=== PATIENT | female | born 1990 | race Caucasian/White ===

== ENCOUNTER 2020-10-04 14:04 | Emergency (ER) | payer OTHER, SELFPAY ==
--- NOTE | ~2020-10-04 | XR_ITS ---
XR foot RT min 3V 10/04/2020 14:32 INDICATION: Right foot pain PROCEDURE: 4 views right foot COMPARISON: No prior studies for comparison. FINDINGS: Fracture, dislocation or subluxation is not identified. Lisfranc joint intact. The soft tis sues appear within normal limits. No foreign bodies are identified. IMPRESSION: 1: NO ACUTE BONE OR JOINT ABNORMALITY IDENTIFIED. Reviewed, dictated and finalized at location B. [employer]EF[employer] COORDINATOR
[2020-10-04 14:14] VITALS: BP 105/66; PULSE 60; RESP 18; TEMP 36.6; O2SAT 99
--- NOTE | 2020-10-04 14:36 | ED.GENADULT ---
HPI - General Adult General Chief complaint: Extremity Injury, Lower Stated complaint: Extremity Injury, Lower Source: patient Mode of arrival: ambulatory Limitations: no limitations History of Present Illness HPI narrative: 30 y/o female. PMH includes: None Reported. Presents to [facility], ambulatory via triage, favoring RT ankle. CC is RT ankle injury immediately [employer]. 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 She describes immediate onset of 'sharp pain'. No loss of sensation. No open wounds. No additional injury has been identified. Related Data Home Medications Medication Instructions Recorded Confirmed No Home Medications 10/04/20 10/04/20 Allergies Allergy/AdvReac Type Severity Reaction Status Date / Time aspirin Allergy Unknown Swelling Verified 10/04/20 14:26 of Lip/Tongue/Throat cyclobenzaprine Allergy Unknown Itching Verified 10/04/20 14:26 Review of Systems Review of Systems: Narrative: CONSTITUTIONAL: Denies fever, chills, sweats. EYES: Denies visual changes, redness, discharge. ENT: Denies rhinorrhea, congestion, sore throat, otalgia. CARDIOVASCULAR: Denies chest pain, palpitations, edema. RESPIRATORY: Denies dyspnea, wheezing, cough GASTROINTESTINAL: Denies abdominal pain, nausea, vomiting, diarrhea. GENITOURINARY: Denies dysuria, hematuria, abnormal discharge SKIN: Denies rash or itching. MUSCULOSKELETAL: RT ankle pain. NEUROLOGIC: Denies numbness, or focal weakness. PSYCHIATRIC: Denies anxiety or depression. [facility] Family History Family History Mother Family history of thyroid disease Father Patient's father is in good health Sibling Patient's sister is in good health Other Cerebrovascular accident Diabetes mellitus Social History Social History Smoking status: Never smoker Alcohol intake: current Comments At the time of my signature I agree with nursing past medical history, surgical, social, and family history. There is no relevant family history pertinent to the presenting complaint. Exam Narrative: Exam Narrative: GENERAL: This is a well-nourished, well-developed patient, in no apparent distress. HEAD: normocephalic, atraumatic. EYES: PERRL. Sclera clear/white. Vision is grossly intact. EARS: External ears normal, auditory canals clear and without drainage, TMs normal without perforation. Hearing grossly intact. NOSE: External nose normal with no obvious nasal discharge, nares without redness, no rhinorrhea. THROAT: Mucous membranes moist, posterior pharynx clear. NECK: Neck supple, non-tender without lymphadenopathy, masses or thyromegaly. CARDIOVASCULAR: Regular rate and rhythm without murmurs, gallops, or rubs. Pulses intact, 3+ RLE. RESPIRATORY: Clear to auscultation. Breath sounds equal bilaterally. No wheezes, rales, or rhonchi. GASTROINTESTINAL: Abdomen soft, non-tender, nondistended. Bowel sounds are active. No hepato-splenomegaly, or palpable masses. No guarding. SKIN: warm, intact with no suspicious lesions or rash, good texture and turgor. NEURO: awake, alert, and oriented to person, place and time. There were no obvious focal neurologic abnormalities. Sensation RLE is preserved. EXTREMITIES: The RT ankle is swollen and tender over the lateral aspect but the skin is intact and there is no ligamentous instability. There is no deformity. The foot and toes are warm and well-perfused. Distal pulses and sensation to pain and light touch is intact. Remainder of musculoskeletal exam is unremarkable. Course Course Emergency Course: Radiology imaging has been reviewed with client. Dx: Ankle Sprain RT. PO POC, AVS, & Care instructions reviewed. She has been provided DADA & Crutches from [facility] today. Timeline of recover 4-6 weeks has been reviewed.
--- NOTE | 2020-10-04 14:45 | PC.NURSE ---
PT DECLINED ICE FOR COMFORT AND WHEELCHAIR TO RADIOLOGY
== END 2020-10-04 14:58 | disposition home or self-care (01) ==
PROVIDERS: Emergency Provider Nurse Practitioner Adult Health; PCP Internal Medicine
DX: S93.401A Sprain of unspecified ligament of right ankle, initial encounter (principal); S96.911A Strain of unspecified muscle and tendon at ankle and foot level, right foot, initial encounter; W51.XXXA Accidental striking against or bumped into by another person, initial encounter; Z86.19 Personal history of other infectious and parasitic diseases
CPT/HCPCS: 73630; 99213; G0463

== ENCOUNTER 2022-08-04 18:08 | Emergency (ER) | payer OTHER, SELFPAY ==
--- NOTE | ~2022-08-04 | XR_ITS ---
EXAM: XR elbow RT min 3V DATE: 08/04/2022 18:47 HISTORY: FELL DOWN STAIRS 08/02/22. POST. SWELLING/PAIN/BRUISIING. . COMPARISON: None available. FINDINGS: Subjectively decreased mineralization. No fracture or dislocation. No lytic or blastic les ion. Joint spaces are maintained. No erosion or periosteal change. Soft tissues within normal limits. IMPRESSION: No acute osseous finding in the right elbow. Reviewed, dictated and finalized at location K.
[2022-08-04 18:14] VITALS: BP 129/73; PULSE 96; RESP 14; TEMP 36.5; O2SAT 100
--- NOTE | 2022-08-04 18:47 | ED.GENADULT ---
HPI - General Adult General Chief complaint: Extremity Injury, Upper Stated complaint: injury to both forearms Time Seen by Provider: 08/04/22 18:38 Source: patient Mode of arrival: ambulatory Limitations: no limitations History of Present Illness HPI narrative: 31-year-old female presented for complaint of bilateral forearm pain after bruising after falling down the stairs 2 days ago. She endorses caring laundry when she slipped on the stairs, she states she caught herself with both elbows. Denies hitting her head or loss of consciousness. Endorses right elbow with the most pain. Denies decreased range of motion to the elbow or swelling. Reports abrasion to elbow and ring and little finger 'feel different.' Denies numbness, tingling, weakness of the upper extremities. Taking Tylenol and ibuprofen for pain. Related Data Home Medications Medication Instructions Recorded Confirmed No Home Medications 10/04/20 08/04/22 Allergies Allergy/AdvReac Type Severity Reaction Status Date / Time aspirin Allergy Unknown Swelling Verified 08/04/22 18:26 of Lip/Tongue/Throat cyclobenzaprine Allergy Unknown Itching Verified 08/04/22 18:26 Review of Systems Review of Systems: CONSTITUTIONAL: Denies body aches, fever, chills EYES: Denies visual changes CARDIOVASCULAR: Denies chest pain, palpitations, or edema. RESPIRATORY: Denies cough or dyspnea. SKIN: Denies rash, itching, or wounds. MUSCULOSKELETAL: Reports right elbow pain, bruising NEUROLOGIC: Denies headache, numbness, tingling, or weakness. All systems reviewed & are unremarkable except as noted in HPI and below PMFSH Family History Family History Mother Family history of thyroid disease Father Patient's father is in good health Sibling Patient's sister is in good health Other Cerebrovascular accident Diabetes mellitus Social History Social History Smoking status: Never smoker Alcohol intake: current Comments At time of signature, I have reviewed and agree with nursing past medical, surgical, social and family history unless otherwise noted. Please see nursing chart for further information. There is no relevant family history pertinent to the presenting complaint Exam Narrative: GENERAL: Well-appearing HEAD: Normocephalic, atraumatic. EYES: PERRLA, conjunctivae clear NECK: Supple. CHEST: Speaks in full sentences. No respiratory distress. HEART: Regular rate and rhythm. Normal and equal peripheral pulses. EXTREMITIES: Right medial epicondylar tenderness with palpation; approx 0.5cm diameter abrasion without drainage; right hand and fingers with normal strength and sensation, normal range of motion. Moderate bruising to bilateral forearms, LFA nontender, full ROM. No obvious deformity; alignment normal, pulse palpable and equal bilaterally, skin warm, dry, pink. Capillary refill less than 3 seconds. SKIN: Warm, dry, no rash. NEURO: Alert and oriented x3. PSYCH: Normal mood and affect Course Course Emergency Course: Patient is aware of diagnosis, understands and agrees to treatment plan. Anticipatory guidance given. Patient agrees to follow-up as directed and is aware of reasons to seek care at the emergency department. Portions of this record may have been created with voice recognition software Level of Care: Express Care Visit Vital Signs Vital signs: Vital Signs Temperature 97.7 F 08/04/22 18:14 Pulse Rate 96 08/04/22 18:14 Respiratory Rate 14 08/04/22 18:14 Blood Pressure 129/73 08/04/22 18:14 Pulse Oximetry 100 08/04/22 18:14 Oxygen Delivery Room Air 08/04/22 18:14 Temperature 97.7 F 08/04/22 18:14 Pulse Rate 96 08/04/22 18:14 Respiratory Rate 14 08/04/22 18:14 Blood Pressure 129/73 08/04/22 18:14 Pulse Oximetry 100 08/04/22 18:14 Oxygen Delivery Room Air 08/04
== END 2022-08-04 19:18 | disposition home or self-care (01) ==
PROVIDERS: Emergency Provider Nurse Practitioner Family; PCP Internal Medicine
DX: M25.521 Pain in right elbow (principal); R20.2 Paresthesia of skin; Z86.16 Personal history of COVID-19
CPT/HCPCS: 73080; 99213; G0463

== ENCOUNTER 2023-01-03 16:20 | Emergency (ER) | payer OTHER, SELFPAY ==
[2023-01-03 16:25] VITALS: BP 101/67; PULSE 72; RESP 20; TEMP 36.6; O2SAT 100
--- NOTE | 2023-01-03 16:32 | ED.GENADULT ---
HPI - General Adult General Chief complaint: Urogenital-Female Stated complaint: Urinary Problem Source: patient and RN notes reviewed History of Present Illness HPI narrative: 32-year-old female presents to urgent care with daughter at side. Patient states she has been having with sensation of not emptying her bladder fully, as well as discomfort in her lower abdomen for the last 4 days. Patient believes she has a UTI. Denies any fevers, chills, vomiting, diarrhea, constipation, or burning with urination. Patient does admit to not taking her diarrhea antibiotic last month when she was diagnosed with a UTI. Patient voices no concerns for STIs. Some parts of this dictation were generated by voice recognition software and may contain typographical and/or grammatical inaccuracies. Related Data Home Medications Medication Instructions Recorded Confirmed bupropion HCl 150 mg 24 hr tablet, 150 mg PO DAILY 01/03/23 01/03/23 extended release Allergies Allergy/AdvReac Type Severity Reaction Status Date / Time aspirin Allergy Unknown Swelling Verified 01/03/23 16:50 of Lip/Tongue/Throat cyclobenzaprine Allergy Unknown Itching Verified 01/03/23 16:50 Review of Systems Review of Systems: CONSTITUTIONAL: Denies fever, chills, or sweats. EYES: Denies visual changes, redness, or discharge. ENT: Denies otalgia and sore throat CARDIOVASCULAR: Denies chest pain, palpitations, or edema. RESPIRATORY: Denies cough or dyspnea. GASTROINTESTINAL: Nausea GENITOURINARY: Sensation of not emptying bladder fully. Discomfort with urination. SKIN: Denies rash or itching. MUSCULOSKELETAL: Denies back pain, joint pain, or myalgia. NEUROLOGIC: Denies headache, numbness, or weakness. PMFSH Family History Family History Mother Family history of thyroid disease Father Patient's father is in good health Sibling Patient's sister is in good health Other Cerebrovascular accident Diabetes mellitus Social History Social History Smoking status: Never smoker Alcohol intake: current Comments At the time of my signature, I reviewed and agree with the nursing past medical, surgical, social, and family history. There is no relevant family history pertinent to the patient complaint. Exam Narrative: GENERAL: This is a well-nourished, well-developed patient, in no apparent distress. HEAD: normocephalic, atraumatic. EYES: PERRL. Sclera clear/white. Vision is grossly intact. EARS: External ears normal, auditory canals clear and without drainage, TMs normal without perforation. Hearing grossly intact. NOSE: External nose normal with no obvious nasal discharge, nares without redness, no rhinorrhea. THROAT: Mucous membranes moist, posterior pharynx clear. NECK: Neck supple, non-tender without lymphadenopathy, masses or thyromegaly. CARDIOVASCULAR: Regular rate and rhythm without murmurs, gallops, or rubs. RESPIRATORY: Clear to auscultation. Breath sounds equal bilaterally. No wheezes, rales, or rhonchi. GASTROINTESTINAL: Abdomen soft, non-tender, nondistended. Bowel sounds are active. No hepato-splenomegaly, or palpable masses. No guarding. SKIN: warm, intact with no suspicious lesions or rash, good texture and turgor. NEURO: awake, alert, and oriented to person, place and time. There were no obvious focal neurologic abnormalities. EXTREMITIES: No clubbing, cyanosis, or edema. No joint tenderness, effusion, or edema noted. BACK: Nontender without deformity or crepitance. No flank tenderness. Course Course Level of Care: Express Care Visit Vital Signs Vital signs: Vital Signs Temperature 97.8 F 01/03/23 16:25 Pulse Rate 72 01/03/23 16:25 Respiratory Rate 20 01/03/23 16:25 Blood Pressure 101/67 01/03/23 16:25 Pulse Oximetry 100 01/03/23 16:25 Oxygen Delivery Room Air 01/03/23 16:25 Temperature 9
== END 2023-01-03 17:12 | disposition home or self-care (01) ==
PROVIDERS: Emergency Provider Nurse Practitioner Family
DX: N39.0 Urinary tract infection, site not specified (principal); K12.0 Recurrent oral aphthae; J45.909 Unspecified asthma, uncomplicated; Z86.16 Personal history of COVID-19
CPT/HCPCS: 81003; 87086; 99213; G0463

== ENCOUNTER 2023-06-21 08:54 | Emergency (ER) | payer OTHER, SELFPAY ==
[2023-06-21 09:02] VITALS: BP 98/71; PULSE 65; RESP 20; TEMP 36.7; O2SAT 98
--- NOTE | 2023-06-21 09:17 | ED.URI ---
HPI - URI/Sore Throat General Chief Complaint: Upper Respiratory Infection Stated Complaint: cough / chest congestion Time Seen by Provider: 06/21/23 09:30 Source: patient and RN notes reviewed Mode of arrival: ambulatory Limitations: no limitations History of Present Illness HPI Narrative: 32-year-old female presents with concern for cough, chest cold. She reports her daughter has similar symptoms, she recently used her daughter's inhaler because her chest felt congested and heavy. Reports she has also had a headache. She reports symptoms started 3-4 days ago. MD elicited complaint: cough Related Data Allergies Allergy/AdvReac Type Severity Reaction Status Date / Time aspirin Allergy Unknown Swelling Verified 06/21/23 09:10 of Lip/Tongue/Throat cyclobenzaprine Allergy Unknown Itching Verified 06/21/23 09:10 metoclopramide [From Reglan] Allergy Anxiety Verified 06/21/23 09:10 Review of Systems Review of Systems: CONSTITUTIONAL: Reports malaise. Denies chills, sweats, or fever. EYES: Denies visual changes, redness, or discharge. ENT: Reports rhinorrhea, congestion. Denies sinus pain, otalgia and sore throat. CARDIOVASCULAR: Denies chest pain, palpitations, or edema. RESPIRATORY: Reports cough, chest congestion. Denies dyspnea. GASTROINTESTINAL: Denies abdominal pain, nausea, vomiting, diarrhea SKIN: Denies rash or itching. MUSCULOSKELETAL: Denies myalgia. NEUROLOGIC: Denies headache. All systems reviewed & are unremarkable except as noted in HPI and below PMFSH Family History Family History Mother Family history of thyroid disease Father Patient's father is in good health Sibling Patient's sister is in good health Other Cerebrovascular accident Diabetes mellitus Social History Social History Smoking status: Never smoker Alcohol intake: current Comments At time of signature, agree with nursing past medical, surgical, social and family history. There is no relevant family history pertinent to the presenting complaint Exam Narrative: GENERAL: Well-appearing, well-nourished, and in no acute distress. HEAD: Normocephalic EYES: PERRLA, conjunctivae clear ENT: Nares clear, turbinates edematous and erythematous, clear discharge. Mucous membranes moist. TM pearly sen with dull light reflex bilaterally; no tragal tenderness. Oropharynx not erythematous without lesions. Tonsils not enlarged and without exudate, no drooling, no hoarseness, no trismus, uvula midline. NECK: Supple. No lymphadenopathy CHEST: Clear to auscultation, breath sounds equal. No wheezing, rhonchi, rales, or stridor. No respiratory distress, speaks in full sentences. HEART: Regular rate and rhythm. No murmur heard. SKIN: Warm, dry, no rash. NEURO: Alert and oriented x3. PSYCH: Normal mood and affect Course Course Emergency Course: Patient is aware of diagnosis, understands and agrees to treatment plan. Anticipatory guidance given. Patient agrees to follow-up as directed and is aware of reasons to seek care at the emergency department. Portions of this record may have been created with voice recognition software Level of Care: Express Care Visit Vital Signs Vital signs: Vital Signs Temperature 98.0 F 06/21/23 09:02 Pulse Rate 65 06/21/23 09:02 Respiratory Rate 20 06/21/23 09:02 Blood Pressure 98/71 L 06/21/23 09:02 Pulse Oximetry 98 06/21/23 09:02 Oxygen Delivery Room Air 06/21/23 09:02 Temperature 98.0 F 06/21/23 09:02 Pulse Rate 65 06/21/23 09:02 Respiratory Rate 20 06/21/23 09:02 Blood Pressure 98/71 L 06/21/23 09:02 Pulse Oximetry 98 06/21/23 09:02 Oxygen Delivery Room Air 06/21/23 09:02 Reviewed. MDM - URI/Sore Throat MDM Narrative Medical decision making narrative: Differential diagnosis considered: Gardiner virus, strep pharyngitis, allergic r
== END 2023-06-21 09:48 | disposition home or self-care (01) ==
PROVIDERS: Emergency Provider Nurse Practitioner
DX: J40 Bronchitis, not specified as acute or chronic (principal); J45.909 Unspecified asthma, uncomplicated; Z86.16 Personal history of COVID-19
CPT/HCPCS: 99213; G0463